=== PATIENT | male | born 1995 | race Caucasian/White ===

== ENCOUNTER 2017-04-10 18:16 | Emergency (ER) | payer MEDICAID ==
[~2017-04-10] VITALS: Ht 160 cm; Wt 49.9 kg
--- NOTE | 2017-04-10 18:56 | Urgent Treatment Center Report ---
History of Present Issue Date/Time Seen by Provider 04/10/17 1856 Visit Reason Pt arrived:Walked Presenting Problem:PT STATES FOR 1 MONTH NOW HE GOES BACK AND FORTH BETWEEN HAVING DIARRHEA AND CONSTIPATION AND AT TIMES HIS STOOL IS GREEN. HE DENIES ABD PAIN BUT STATES HIS STOMACH FEELS TIGHT. VOMITED ONCE LAST NIGHT AT 1147. Location if Accident: Onset of symptoms date/time:/ or onset unknown for:MEDICAL HX UNKNOWN Have you (or family members/close friends) recently traveled outside the [place]? N If Yes, where/when: Have you had exposure to infectious disease within the past month? TB? Other? Specify: Patient state that he has been having eppisodes of diarrhea and constipation State that it will stop then return not sure exactly what is causing it State that he had not had abdominal pain but at times his stool is dark green in color States then it will clear up and go away and he will have normal bowel movements. State that last night his abdomen felt tight and he vomited a couple of times but today he has not had any vomiting or pain no diarrhea but his aunt wanted him to come in and see if he could get a family doctor ALLERGIES Coded Allergies: No Known Allergies (04/10/17) Home Medications Reported Medications No Known Home Medications History Medical History General Angina: No CA: No Hypertension? No Hyperlipidemia? No CHF? No COPD? No Asthma? No CVA? No Seizures? No Diabetes? No GB Disease: No MRSA? No TB? No Cancer? No Immunization HX DT/Tetanus Unknown Surgical Hx Previous Surgery?N Social History Smoking Hx Smoker: Current Every Day Smoker Tobacco: Yes Type Cigarettes Packs/day < 1 Pack Alcohol Alcohol: No Review of Systems All Other Systems Reviewed and Negative Gastrointestinal constipation, diarrhea, nausea, vomiting Physical Exam Vital Signs Vital Signs Date Time Temp Pulse Resp B/P Pulse O2 O2 Flow FiO2 Ox Delivery Rate 04/10 1828 98.6 106 18 141/92 99 General Appearance normal appearance, WD/WN, no apparent distress Respiratory Status Yes: trachea midline, chest symmetrical, non tender chest. No: respiratory distress. 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 No Progress [facility] Progress Notes Comment Patient denied abdominal pain Departure Departure Time of Disposition 1919 Disposition DC Home or Self Care(routine) Clinical Impression Primary Impression: Bowel habit changes Condition STABLE Referrals SHAISTA SANTO MD, [place] Patient Instructions DI for Constipation, DI for Nausea -- Adult, DI for Vomiting -- Adult, Diarrhea (Alternative Therapy) Additional Instructions Follow up with family doctor for further evaluation and treatment Return if needed If you began having bleeding or noticing dark stools go straight to the ER Discharge Counseling Counseled pt/family regarding diagnosis, home care Prescriptions Current Visit Scripts No Known Home Medications at 1926
--- NOTE | 2017-04-10 18:56 | Urgent Treatment Center Report ---
History of Present Issue Date/Time Seen by Provider 04/10/17 1856 Visit Reason Pt arrived:Walked Presenting Problem:PT STATES FOR 1 MONTH NOW HE GOES BACK AND FORTH BETWEEN HAVING DIARRHEA AND CONSTIPATION AND AT TIMES HIS STOOL IS GREEN. HE DENIES ABD PAIN BUT STATES HIS STOMACH FEELS TIGHT. VOMITED ONCE LAST NIGHT AT 1147. Location if Accident: Onset of symptoms date/time:/ or onset unknown for:MEDICAL HX UNKNOWN Have you (or family members/close friends) recently traveled outside the [place]? N If Yes, where/when: Have you had exposure to infectious disease within the past month? TB? Other? Specify: Patient state that he has been having eppisodes of diarrhea and constipation State that it will stop then return not sure exactly what is causing it State that he had not had abdominal pain but at times his stool is dark green in color States then it will clear up and go away and he will have normal bowel movements. State that last night his abdomen felt tight and he vomited a couple of times but today he has not had any vomiting or pain no diarrhea but his aunt wanted him to come in and see if he could get a family doctor ALLERGIES Coded Allergies: No Known Allergies (04/10/17) Home Medications Reported Medications No Known Home Medications History Medical History General Angina: No [place]: No Hypertension? No Hyperlipidemia? No CHF? No COPD? No Asthma? No CVA? No Seizures? No Diabetes? No GB Disease: No MRSA? No TB? No Cancer? No Immunization HX DT/Tetanus Unknown Surgical Hx Previous Surgery?N Social History Smoking Hx Smoker: Current Every Day Smoker Tobacco: Yes Type Cigarettes Packs/day < 1 Pack Alcohol Alcohol: No Review of Systems All Other Systems Reviewed and Negative Gastrointestinal constipation, diarrhea, nausea, vomiting Physical Exam Vital Signs Vital Signs Date Time Temp Pulse Resp B/P Pulse O2 O2 Flow FiO2 Ox Delivery Rate 04/10 1828 98.6 106 18 141/92 99 General Appearance normal appearance, WD/WN, no apparent distress Respiratory Status Yes: trachea midline, chest symmetrical, non tender chest. No: respiratory distress. 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 No Progress [facility] Progress Notes Comment Patient denied abdominal pain Departure Departure Time of Disposition 1919 Disposition DC Home or Self Care(routine) Clinical Impression Primary Impression: Bowel habit changes Condition STABLE Referrals SHAISTA SANTO MD, [place] Patient Instructions DI for Constipation, DI for Nausea -- Adult, DI for Vomiting -- Adult, Diarrhea (Alternative Therapy) Additional Instructions Follow up with family doctor for further evaluation and treatment Return if needed If you began having bleeding or noticing dark stools go straight to the ER Discharge Counseling Counseled pt/family regarding diagnosis, home care Prescriptions Current Visit Scripts No Known Home Medications at 1926
[2017-04-10 19:27] VITALS: BP 141/92
== END 2017-04-10 19:30 | disposition home or self-care (01) ==
LOC: UTC 18:16
DX: K59.00 Constipation, unspecified (principal); F17.210 Nicotine dependence, cigarettes, uncomplicated